=== PATIENT | female | born 1930 | race Caucasian/White ===

== ENCOUNTER 2017-07-09 15:21 | Emergency (ER) | payer MEDICARE, OTHER, MEDICAID ==
[2017-07-09 15:30] VITALS: BP 140/67
--- NOTE | 2017-07-09 16:07 | EDM.PDOC ---
ED HPI GENERAL MEDICAL PROBLEM - General Chief Complaint: Upper Extremity Injury/Pain Stated Complaint: FALL/LACERATIONS/WOUNDS Time Seen by Provider: 07/09/17 15:35 Source of Information: Reports: Patient History Limitations: Reports: No Limitations - History of Present Illness INITIAL COMMENTS - FREE TEXT/NARRATIVE: The patient presents after a fall. She was walking down her steps and a dog got under her feet and she fell. She did not hit her head and she has no LOC. She has no headache, neck pain, chest pain or shortness of breath. She does have 2 skin tears to her left arm and abrasions to her right elbow and knee. She has no other pain. Onset: Sudden Duration: Minutes: Location: Reports: Upper Extremity, Left, Upper Extremity, Right, Lower Extremity, Right Quality: Reports: Burning Severity: Mild Improves with: Reports: None Worsens with: Reports: None Context: Reports: Activity (She tripped over a dog and fell) Associated Symptoms: Reports: No Other Symptoms - Related Data Allergies Allergy/AdvReac Type Severity Reaction Status Date / Time prednisolone acetate, Allergy Severe rash/angioe Verified 07/09/17 15:30 micronized tino [prednisolone acetate, micro] doxycycline Allergy Rash Verified 07/09/17 15:30 Penicillins Allergy Swelling Verified 07/09/17 15:30 Home Meds: Home Meds Aspirin [Ecotrin] 1 tab PO DAILY 06/29/16 [History] Diltiazem HCl [Diltiazem 24Hr ER] 1 tab PO DAILY 06/29/16 [History] atorvaSTATin [Lipitor] 1 tab PO DAILY 06/29/16 [History] LORazepam 0.5 mg PO ASDIRECTED PRN 11/11/16 [History] Past Medical History HEENT History: Reports: Cataract Cardiovascular History: Reports: Arrhythmia, High Cholesterol Other Cardiovascular History: at fib Respiratory History: Reports: COPD Gastrointestinal History: Reports: GERD Other Gastrointestinal History: tumor removal Genitourinary History: Reports: UTI, Recurrent Other OB/BYN History: Historectomy, 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 Musculoskeletal History: Reports: Osteoporosis Psychiatric History: Reports: Anxiety, Depression Oncologic (Cancer) History: Reports: Colon Dermatologic History: Reports: Other (See Below) Other Dermatologic History: excision of skin lesion - Past Surgical History HEENT Surgical History: Reports: Cataract Surgery GI Surgical History: Reports: Colonoscopy, EGD Other GI Surgeries/Procedures: diverticulosis, abdominal pain, hx of colon cancer, h pylori, hematochezia Female Surgical History: Reports: Breast Biopsy, Hysterectomy Social & Family History - Family History Family Medical History: Noncontributory - Tobacco Use Smoking Status *Q: Current Every Day Smoker Years of Tobacco use: 44 Packs/Tins Daily: 1 Second Hand Smoke Exposure: Yes - Caffeine Use Caffeine Use: Reports: Coffee - Alcohol Use Days Per Week of Alcohol Use: 0 - Recreational Drug Use Recreational Drug Use: No Drug Use in Last 12 Months: No - Living Situation & Occupation Living situation: Reports: Single Occupation: Retired Review of Systems - Review of Systems Review Of Systems: See Below Constitutional: Reports: No Symptoms Eyes: Reports: No Symptoms Ears: Reports: No Symptoms Nose: Reports: No Symptoms Mouth/Throat: Reports: No Symptoms Respiratory: Reports: No Symptoms Cardiovascular: Reports: No Symptoms GI/Abdominal: Reports: No Symptoms Genitourinary: Reports: No Symptoms Musculoskeletal: Reports: Other (Abrasions and skin tears) ED EXAM, GENERAL - Physical Exam Exam: See Below Exam Limited By: No Limitations General Appearance: Alert, No Apparent Distress Ears: Normal External Exam Nose: Normal Inspection Head: Atraumatic, Normocephalic Neck: Normal Inspection Respiratory/Chest: No Respiratory Distress, Lungs Clear, Normal Breath Sounds Cardiovascular: Regular Rate, Rhythm, No Edema, No Murmur GI/Abdominal: Soft, Non-Tender, No Organomegaly, No Mass Back Exam: Normal Inspection Extremities: Other (Abrasion to her right elbow with no pain upon palpation no edema. Good sensation and pulses distally. Abrasion to the right knee with no edema and good sensation and pulses distally. Skin tear on her left hand and left forearm.) Course - Vital Signs Last Recorded V/S: Last Vital Signs Temp 98.9 F 07/09/17 15:27 Pulse 95 07/09/17 15:27 Resp 16 07/09/17 15:27 BP 140/67 07/09/17 15:27 Pulse Ox 100 07/09/17 15:27 - Re-Assessments/Exams Free Text/Narrative Re-Assessment/Exam: 07/09/17 16:33 The patient did not want any x-rays and I do not think she needs any. She has abrasions and 2 skin tears that my nurse cleaned and dressed and she closed the skin tears with steri stips. Departure - Departure Time of Disposition: 16:35 Disposition: Home, Self-Care 01 Condition: Good Clinical Impression: Fall Qualifiers: Encounter type: initial encounter Qualified Code(s): W19.XXXA - Unspecified fall, initial encounter Abrasion of elbow, right Qualifiers: Encounter type: initial encounter Qualified Code(s): S50.311A - Abrasion of right elbow, initial encounter Abrasion of right knee Qualifiers: Encounter type: initial encounter Qualified Code(s): S80.211A - Abrasion, right knee, initial encounter Skin tear of forearm without complication Qualifiers: Encounter type: initial encounter Laterality: left Qualified Code(s): S51.812A - Laceration without foreign body of left forearm, initial encounter Skin tear of left hand without complication Qualifiers: Encounter type: initial encounter Qualified Code(s): S61.412A - Laceration without foreign body of left hand, initial encounter - Discharge Information Referrals: Twin Mueller MD [Primary Care Provider] - 1 Week Forms: ED Department Discharge Additional Instructions: Clean your wound with warm soapy water 2 times per day and apply antibiotic ointment after. Do this for 5 days. Follow up with Dr Mueller. Look for any sings of infection such as redness, swelling, pain, or drainage. Be seen sooner if you see any of these signs.
== END 2017-07-09 16:43 | disposition home or self-care (01) ==
LOC: JD.ED 15:21
DX: S51.812A Laceration without foreign body of left forearm, initial encounter (principal); S61.412A Laceration without foreign body of left hand, initial encounter; S50.311A Abrasion of right elbow, initial encounter; S80.211A Abrasion, right knee, initial encounter; E78.00 Pure hypercholesterolemia, unspecified; I48.91 Unspecified atrial fibrillation; J44.9 Chronic obstructive pulmonary disease, unspecified; K21.9 Gastro-esophageal reflux disease without esophagitis; F17.210 Nicotine dependence, cigarettes, uncomplicated; F41.9 Anxiety disorder, unspecified; F32.9 Major depressive disorder, single episode, unspecified; Z98.49 Cataract extraction status, unspecified eye; Z87.440 Personal history of urinary (tract) infections; Z90.710 Acquired absence of both cervix and uterus; Z88.1 Allergy status to other antibiotic agents; Z88.0 Allergy status to penicillin; Z88.8 Allergy status to other drugs, medicaments and biological substances; Z79.82 Long term (current) use of aspirin; Z79.899 Other long term (current) drug therapy; W10.9XXA Fall (on) (from) unspecified stairs and steps, initial encounter
CPT/HCPCS: 99282; 99283

== ENCOUNTER 2019-03-25 01:25 | Emergency (ER) | payer MEDICARE, OTHER, MEDICAID ==
--- NOTE | 2019-03-25 10:47 | ER ---
CHIEF COMPLAINT: A thump in her chest. HISTORY OF PRESENT ILLNESS: The patient awoke with a thump in her chest. She is not sure what happened before this, but she woke up and then felt this thump in her chest. The patient has a history of intermittent atrial fibrillation. She had this single episode. This was not associated with any ongoing chest discomfort, chest pressure, breathing difficulties, or shortness of breath. She did not wake up diaphoretic, and she denies any nausea or vomiting. Besides her atrial fibrillation, she has a history of increased cholesterol. The patient denies any other symptoms at this point. PAST MEDICAL HISTORY: Significant for the increased cholesterol and atrial fibrillation. PAST SURGICAL HISTORY: Significant for hysterectomy. CURRENT MEDICATIONS: Include atorvastatin, ranitidine, diltiazem, Eliquis, and lorazepam at bedtime and as needed. REVIEW OF SYSTEMS: GENERAL: Negative for fevers, chills, headaches, nausea, or dizziness. HEENT: No ear pain, vision changes, difficulty swallowing, or nasal congestion. PULMONARY: No breathing difficulty or shortness of breath. CARDIOVASCULAR: See history of present illness. GASTROINTESTINAL: No nausea, vomiting, constipation, or diarrhea. At times, she gets some left-sided abdominal discomfort, and she cannot lie on her left side because this keeps her up. This has been an ongoing issue dating back over a year. Her regular doctor thinks it is related to her back. GENITOURINARY: No burning or frequency with urination. NEUROLOGIC: Unremarkable. PHYSICAL EXAMINATION: GENERAL: The patient appears her stated age. She is in no acute distress. She is alert and oriented and cooperative during the course of the exam, able to answer questions appropriately. VITAL SIGNS: Show temperature of 97.4; pulse 74, regular; respirations 14, nonlabored; blood pressure 139/53. Pain is rated as 0/10. O2 saturations 97% on room air. HEAD: Normocephalic and atraumatic. NECK: Supple. No palpable neck masses. Thyroid is not palpable. No JVD. No nuchal rigidity. HEART: Regular rate and rhythm without evidence of murmur, gallop, or rub. LUNGS: Clear. Respirations are nonlabored. No wheezes, crackles, or rhonchi. ABDOMEN: Active bowel sounds. Soft. She gets some vague left-sided discomfort and feels like she has a collection of gas in her colon. No rebound or guarding noted. BACK: No CVA discomfort. No palpable discomfort. EXTREMITIES: Negative for varicosities or edema. COURSE IN THE EMERGENCY ROOM: EKG was done which shows a sinus irregular rhythm. Intervals otherwise normal. No ectopy. No acute ischemia. Mild low voltage in the precordial leads. Troponin is negative. Chemistries unremarkable. The patient was observed for some time, did not demonstrate any dysrhythmias on telemetry. At this time, the patient would like to go home. ASSESSMENT: Palpitations. PLAN: Follow up with the regular doctor as needed and in 1 week for recheck. No medication changes at this time. AJ /[id number]
--- NOTE | 2019-03-25 14:25 | CR ---
Chest: Portable view of the chest was obtained. Comparison: Prior chest x-ray of 06/29/16. Heart size appears slightly prominent. Tortuous thoracic aorta is seen. Lungs are clear without acute parenchymal change. Diaphragms are flattened compatible with emphysematous change. Bony structures are osteopenic. Impression: 1. Probable emphysematous change. Nothing acute is seen. Diagnostic code #2
== END 2019-03-25 03:50 | disposition home or self-care (01) ==
LOC: JD.ED 01:25
DX: R00.2 Palpitations (principal); I48.91 Unspecified atrial fibrillation; E78.00 Pure hypercholesterolemia, unspecified; Z90.710 Acquired absence of both cervix and uterus
CPT/HCPCS: 36415; 71045; 71045-26; 80053; 84484; 93010; 99282; 99285-25

== ENCOUNTER 2020-06-09 12:00 | Emergency (ER) | payer MEDICARE, OTHER, MEDICAID ==
[2020-06-09] MEDS ORDERED: Sodium Chloride 0.9% 10 ML Syringe FLUSH PRN (12:08)
[2020-06-09 12:11] VITALS: BP 143/52; PULSE 70
--- NOTE | 2020-06-09 12:17 | EDM.PDOC ---
ED HPI GENERAL MEDICAL PROBLEM - General Chief Complaint: Chest Pain Stated Complaint: [facility] Time Seen by Provider: 06/09/20 12:08 Source of Information: Reports: Patient History Limitations: Reports: No Limitations - History of Present Illness INITIAL COMMENTS - FREE TEXT/NARRATIVE: The patient presents by [facility] for chest pain. She said she was doing a puzzle this morning and she developed right sided chest pain. It was severe. She had no shortness of breath with it. She has no fever, chills, cough, congestion, runny nose, abdominal pain, nausea or vomiting. She has a history of A-fib. She has no pain now and she is feeling much better. Onset: Sudden Duration: Hour(s): Location: Reports: Chest Quality: Reports: Sharp Severity: Severe Improves with: Reports: None Worsens with: Reports: None Associated Symptoms: Reports: Chest Pain. 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 - Related Data Allergies Allergy/AdvReac Type Severity Reaction Status Date / Time doxycycline Allergy Severe Rash Verified 06/09/20 12:11 Penicillins Allergy Severe Swelling Verified 06/09/20 12:11 prednisolone acetate, Allergy Severe rash/angioe Verified 06/09/20 12:11 micronized tino [prednisolone acetate, micro] Home Meds: Home Meds Aspirin [Ecotrin EC] 1 tab PO DAILY 06/29/16 [History] Diltiazem HCl [Diltiazem 24Hr ER] 1 tab PO DAILY 06/29/16 [History] atorvaSTATin [Lipitor] 1 tab PO DAILY 06/29/16 [History] LORazepam 0.5 mg PO ASDIRECTED PRN 11/11/16 [History] Apixaban [Eliquis] 5 mg PO BID 06/09/20 [History] PARoxetine HCl [Paxil] 40 mg PO DAILY 06/09/20 [History] Past Medical History HEENT History: Reports: Cataract Cardiovascular History: Reports: Arrhythmia, High Cholesterol Other Cardiovascular History: at fib Respiratory History: Reports: COPD Gastrointestinal History: Reports: GERD Other Gastrointestinal History: tumor removal Genitourinary History: Reports: UTI, Recurrent 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 Musculoskeletal History: Reports: Osteoporosis Psychiatric History: Reports: Anxiety, Depression Oncologic (Cancer) History: Reports: Colon Dermatologic History: Reports: Other (See Below) Other Dermatologic History: excision of skin lesion - Past Surgical History HEENT Surgical History: Reports: Cataract Surgery GI Surgical History: Reports: Colonoscopy, EGD Other GI Surgeries/Procedures: diverticulosis, abdominal pain, hx of colon cancer, h pylori, hematochezia Female Surgical History: Reports: Breast Biopsy, Hysterectomy Social & Family History - Family History Family Medical History: Noncontributory - Caffeine Use Caffeine Use: Reports: Coffee - Living Situation & Occupation Living situation: Reports: Single Occupation: Retired ED ROS GENERAL - Review of Systems Review Of Systems: See Below Constitutional: Reports: No Symptoms HEENT: Reports: No Symptoms Respiratory: Reports: No Symptoms Cardiovascular: Reports: Chest Pain Endocrine: Reports: No Symptoms GI/Abdominal: Reports: No Symptoms : Reports: No Symptoms Musculoskeletal: Reports: No Symptoms ED EXAM, GENERAL - Physical Exam Exam: See Below Exam Limited By: No Limitations General Appearance: Alert, No Apparent Distress Ears: Normal External Exam Nose: Normal Inspection Head: Atraumatic, Normocephalic Neck: Normal Inspection Respiratory/Chest: No Respiratory Distress, Lungs Clear, Normal Breath Sounds Cardiovascular: Regular Rate, Rhythm, No Edema, No Murmur GI/Abdominal: Soft, Non-Tender, No Organomegaly, No Mass Back Exam: Normal Inspection Course - Vital Signs Last Recorded V/S: Last Vital Signs Temp 97.1 F 06/09/20 12:08 Pulse 70 06/09/20 12:08 Resp 16 06/09/20 12:08 BP 143/52 H 06/09/20 12:08 Pulse Ox 96 06/09/20 12:08 - Orders/Labs/Meds Orders: Active Orders 24 hr Category Date Time Status Cardiac Monitoring [RC] . DIRECTED Care 06/09/20 12:08 Active EKG Documentation Completion [RC] STAT Care 06/09/20 12:08 Active Peripheral IV Care [RC] . DIRECTED Care 06/09/20 12:08 Active Sodium Chloride 0.9% [Saline Flush] Med 06/09/20 12:08 Active 10 ml FLUSH ASDIRECTED PRN Peripheral IV Insertion Adult [OM.PC] Stat Oth 06/09/20 12:08 Ordered Medication Orders Sodium Chloride (Saline Flush) 10 ml FLUSH ASDIRECTED PRN PRN Reason: Keep Vein Open Last Admin: 06/09/20 12:21 Dose: 10 ml Documented by: LEX Labs: Laboratory Tests 06/09/20 06/09/20 Range/Units 12:33 12:33 WBC 7.05 (3.98-10.04) K/mm3 RBC 3.80 L (3.98-5.22) M/mm3 Hgb 11.2 (11.2-15.7) gm/dl Hct 34.6 (34.1-44.9) % MCV 91.1 (79.4-94.8) fl MCH 29.5 (25.6-32.2) pg MCHC 32.4 (32.2-35.5) g/dl RDW Std Deviation 41.6 (36.4-46.3) fL Plt Count 239 (182-369) K/mm3 MPV 10.1 (9.4-12.3) fl Neut % (Auto) 61.5 (34.0-71.1) % Lymph % (Auto) 23.0 (19.3-51.7) % [place] % (Auto) 8.5 (4.7-12.5) % Eos % (Auto) 6.4 H (0.7-5.8) Baso % (Auto) 0.6 (0.1-1.2) % Neut # (Auto) 4.34 (1.56-6.13) K/mm3 Lymph # (Auto) 1.62 (1.18-3.74) K/mm3 [place] # (Auto) 0.60 H (0.24-0.36) K/mm3 Eos # (Auto) 0.45 H (0.04-0.36) K/mm3 Baso # (Auto) 0.04 (0.01-0.08) K/mm3 Manual Slide Review Normal smear Sodium 139 (136-145) mEq/L Potassium 4.1 (3.5-5.1) mEq/L Chloride 106 (98-107) mEq/L Carbon Dioxide 22 (21-32) mEq/L Anion Gap 15.1 H (5-15) BUN 18 (7-18) mg/dL Creatinine 1.0 (0.55-1.02) mg/dL Est Cr Clr Drug Dosing 31.55 mL/min Estimated GFR (MDRD) 52 (>60) mL/min BUN/Creatinine Ratio 18.0 (14-18) Glucose 101 (83-115) mg/dL Calcium 8.5 (8.5-10.1) mg/dL Total Bilirubin 0.4 (0.2-1.0) mg/dL AST 12 L (15-37) U/L ALT 17 (14-59) U/L Alkaline Phosphatase 161 H (46-116) U/L Troponin I < 0.017 (0.00-0.056) ng/mL Total Protein 6.9 (6.4-8.2) g/dl Albumin 3.3 L (3.4-5.0) g/dl Globulin 3.6 gm/dL Albumin/Globulin Ratio 0.9 L (1-2) Meds: Medications Generic Name Dose Route Start Last Admin Trade Name Freq PRN Reason Stop Dose Admin Sodium Chloride 10 ml 06/09/20 12:08 06/09/20 12:21 Saline Flush FLUSH 10 ml ASDIRECTED PRN Administration Keep Vein Open - Re-Assessments/Exams Free Text/Narrative Re-Assessment/Exam: 06/09/20 12:17 I ordered an IV saline lock, EKG, CXR and labs. 06/09/20 13:52 Her CXR looks good. Her EKG shows a NSR with no acute changes. Her CBC and CMP look good. Her troponin is negative. Departure - Departure Time of Disposition: 13:55 Disposition: Home, Self-Care 01 Condition: Good Clinical Impression: Atypical chest pain Referrals: Twin Mueller MD [Primary Care Provider] - 1 Week Forms: ED Department Discharge Additional Instructions: Take your medication as prescribed. Please return if you are worse. Sepsis Event Note (ED) - Evaluation Sepsis Screening Result: No Definite Risk - Focused Exam Vital Signs: Vital Signs Temp Pulse Resp BP Pulse Ox 06/09/20 12:08 97.1 F 70 16 143/52 H 96 - My Orders Last 24 Hours: My Active Orders 06/09/20 12:08 Cardiac Monitoring [RC] . DIRECTED EKG Documentation Completion [RC] STAT Peripheral IV Care [RC] . DIRECTED Sodium Chloride 0.9% [Saline Flush] 10 ml FLUSH ASDIRECTED PRN Peripheral IV Insertion Adult [OM.PC] Stat - Assessment/Plan Last 24 Hours: My Active Orders 06/09/20 12:08 Cardiac Monitoring [RC] . DIRECTED EKG Documentation Completion [RC] STAT Peripheral IV Care [RC] . DIRECTED Sodium Chloride 0.9% [Saline Flush] 10 ml FLUSH ASDIRECTED PRN Peripheral IV Insertion Adult [OM.PC] Stat
--- NOTE | 2020-06-09 12:50 | CR ---
Chest: Portable view of the chest was obtained. Comparison: Prior chest x-ray of 03/25/19. Heart size is slightly prominent. Tortuous thoracic aorta is noted. Mild lobulation the right hemidiaphragm is seen which appears chronic. No acute parenchymal changes seen. Bony structures are osteopenic. Impression: 1. Findings as noted above. 2. Nothing acute is suspected. Diagnostic code #2 Study was dictated in MDT
== END 2020-06-09 14:15 | disposition home or self-care (01) ==
LOC: JD.ED 12:00
DX: R07.89 Other chest pain (principal); E78.00 Pure hypercholesterolemia, unspecified; I48.91 Unspecified atrial fibrillation; F41.9 Anxiety disorder, unspecified; F32.9 Major depressive disorder, single episode, unspecified; Z88.1 Allergy status to other antibiotic agents; Z88.0 Allergy status to penicillin; Z88.8 Allergy status to other drugs, medicaments and biological substances; Z79.82 Long term (current) use of aspirin; Z79.01 Long term (current) use of anticoagulants; Z79.899 Other long term (current) drug therapy
CPT/HCPCS: 36415; 71045; 71045-26; 80053; 84484; 85025; 93005; 93010; 99283; 99285-25

== ENCOUNTER 2020-11-22 17:15 | Emergency (ER) | payer MEDICARE, OTHER, MEDICAID ==
[2020-11-22 17:29] VITALS: BP 142/61; PULSE 74
--- NOTE | 2020-11-22 19:45 | EDM.PDOC ---
ED HPI GENERAL MEDICAL PROBLEM - General Chief Complaint: General Stated Complaint: [facility] Time Seen by Provider: 11/22/20 18:35 Source of Information: Reports: Patient, RN Notes Reviewed History Limitations: Reports: No Limitations - History of Present Illness INITIAL COMMENTS - FREE TEXT/NARRATIVE: Patient is an 89-year-old female presenting to the emergency department via [facility] with complaints of intermittent involuntary movements since last evening. She describes repetitive jerking of her lower extremities which then moves up to her upper extremities. She states she had this continuously last evening which prevented her from sleeping. She is completely conscious for these events and states that they are brief but recur frequently. She was finally able to go to sleep around 6:00 this morning and slept for approximately 4 hours. She has been doing well throughout the day, however this evening the involuntary jerking began again. She states that she has felt somewhat weak and fatigued for the last few weeks. She did have an episode 3 weeks back where she lost her voice. She has not had any fever or chills. She has no history of alert neurologic disorders such as seizures, strokes, or Parkinson's disease. She has not had any recent medication changes. She states that she normally takes Ativan 0.5 mg at bedtime, however she has been out of this medication for couple weeks. 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 - Related Data Allergies Allergy/AdvReac Type Severity Reaction Status Date / Time doxycycline Allergy Severe Rash Verified 11/22/20 17:29 Penicillins Allergy Severe Swelling Verified 11/22/20 17:29 prednisolone acetate, Allergy Severe rash/angioe Verified 11/22/20 17:29 micronized tino [prednisolone acetate, micro] Home Meds: Home Meds Diltiazem HCl [Diltiazem 24Hr ER] 1 tab PO DAILY 06/29/16 [History] LORazepam 0.5 mg PO ASDIRECTED PRN 11/11/16 [History] Apixaban [Eliquis] 2.5 mg PO BID 11/22/20 [History] Past Medical History HEENT History: Reports: Cataract Cardiovascular History: Reports: Arrhythmia, High Cholesterol Other Cardiovascular History: at fib Respiratory History: Reports: COPD Gastrointestinal History: Reports: GERD Other Gastrointestinal History: tumor removal Genitourinary History: Reports: UTI, Recurrent 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 Musculoskeletal History: Reports: Osteoporosis Psychiatric History: Reports: Anxiety, Depression Oncologic (Cancer) History: Reports: Colon Dermatologic History: Reports: Other (See Below) Other Dermatologic History: excision of skin lesion - Past Surgical History HEENT Surgical History: Reports: Cataract Surgery Other HEENT Surgeries/Procedures: both eyes GI Surgical History: Reports: Colonoscopy, EGD Other GI Surgeries/Procedures: diverticulosis, abdominal pain, hx of colon cancer, h pylori, hematochezia Female Surgical History: Reports: Breast Biopsy, Hysterectomy Other Female Surgeries/Procedures: only 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 Social & Family History - Family History Family Medical History: No Pertinent Family History - Tobacco Use Tobacco Use Status *Q: Never Tobacco User - Caffeine Use Caffeine Use: Reports: Coffee - Living Situation & Occupation Living situation: Reports: Single Occupation: Retired ED ROS GENERAL - Review of Systems Review Of Systems: See Below Constitutional: Reports: Weakness, Fatigue. Denies: Fever, Chills HEENT: Reports: No Symptoms Respiratory: Reports: No Symptoms Cardiovascular: Reports: No Symptoms Endocrine: Reports: No Symptoms GI/Abdominal: Reports: No Symptoms : Reports: No Symptoms Musculoskeletal: Reports: No Symptoms Skin: Reports: No Symptoms Neurological: Reports: Other (involuntary jerking of upper and lower extremities) Psychiatric: Reports: No Symptoms Hematologic/Lymphatic: Reports: No Symptoms Immunologic: Reports: No Symptoms ED EXAM, GENERAL - Physical Exam Exam: See Below General Appearance: Alert, WD/WN, No Apparent Distress Respiratory/Chest: No Respiratory Distress, Lungs Clear, Normal Breath Sounds, No Accessory Muscle Use, Chest Non-Tender Cardiovascular: Normal Peripheral Pulses, Regular Rate, Rhythm, No Edema, No Gallop, No JVD, No Murmur, No Rub GI/Abdominal: Normal Bowel Sounds, Soft, Non-Tender, No Organomegaly, No Distention, No Abnormal Bruit, No Mass Neurological: Alert, Oriented, CN II-XII Intact, Normal Cognition, Normal Gait, Normal Reflexes, No Motor/Sensory Deficits, Other (occasional myoclonic movements of the lower extremities. No focal neurologic deficits. ) Psychiatric: Normal Affect, Normal Mood Skin Exam: Warm, Dry, Intact, Normal Color, No Rash #1 Interpretation EKG Date: 11/22/20 Time: 18:03 Rhythm: NSR Rate (Beats/Min): 69 [place]: LAD-Left [place] Deviation P-Wave: Present QRS: Normal ST-T: Normal QT: Prolonged (mildly) Course - Vital Signs Last Recorded V/S: Last Vital Signs Temp 98.8 F 11/22/20 17:21 Pulse 74 11/22/20 17:21 Resp 16 11/22/20 17:21 BP 142/61 H 11/22/20 17:21 Pulse Ox 97 11/22/20 17:21 - Orders/Labs/Meds Labs: Laboratory Tests 11/22/20 11/22/20 11/22/20 Range/Units 17:53 17:53 17:53 WBC 8.23 (3.98-10.04) K/mm3 RBC 3.76 L (3.98-5.22) M/mm3 Hgb 11.2 (11.2-15.7) gm/dl Hct 33.9 L (34.1-44.9) % MCV 90.2 (79.4-94.8) fl MCH 29.8 (25.6-32.2) pg MCHC 33.0 (32.2-35.5) g/dl RDW Std Deviation 42.3 (36.4-46.3) fL Plt Count 250 (182-369) K/mm3 MPV 9.5 (9.4-12.3) fl Neut % (Auto) 61.4 (34.0-71.1) % Lymph % (Auto) 24.7 (19.3-51.7) % [place] % (Auto) 8.7 (4.7-12.5) % Eos % (Auto) 4.5 (0.7-5.8) Baso % (Auto) 0.6 (0.1-1.2) % Neut # (Auto) 5.05 (1.56-6.13) K/mm3 Lymph # (Auto) 2.03 (1.18-3.74) K/mm3 [place] # (Auto) 0.72 H (0.24-0.36) K/mm3 Eos # (Auto) 0.37 H (0.04-0.36) K/mm3 Baso # (Auto) 0.05 (0.01-0.08) K/mm3 D-Dimer, Quantitative < 0.19 L (0.19-0.50) mg/L Sodium 138 (136-145) mEq/L Potassium 3.8 (3.5-5.1) mEq/L Chloride 105 (98-107) mEq/L Carbon Dioxide 25 (21-32) mEq/L Anion Gap 11.8 (5-15) BUN 18 (7-18) mg/dL Creatinine 1.5 H (0.55-1.02) mg/dL Est Cr Clr Drug Dosing 21.26 mL/min Estimated GFR (MDRD) 33 (>60) mL/min BUN/Creatinine Ratio 12.0 L (14-18) Glucose 106 (83-115) mg/dL Lactic Acid (0.4-2.0) mmol/L Calcium 8.9 (8.5-10.1) mg/dL Magnesium (1.8-2.4) mg/dl Total Bilirubin 0.4 (0.2-1.0) mg/dL AST 13 L (15-37) U/L ALT 17 (14-59) U/L Alkaline Phosphatase 152 H (46-116) U/L Troponin I (0.00-0.056) ng/mL Total Protein 6.8 (6.4-8.2) g/dl Albumin 3.1 L (3.4-5.0) g/dl Globulin 3.7 gm/dL Albumin/Globulin Ratio 0.8 L (1-2) Free T4 (0.76-1.46) ng/dL TSH 3rd Generation (0.358-3.74) uIU/mL Urine Color (Yellow) Urine Appearance (Clear) Urine pH (5.0-8.0) Ur Specific [place] (1.005-1.030) Urine Protein (Negative) Urine Glucose (UA) (Negative) Urine Ketones (Negative) Urine Occult Blood (Negative) Urine Nitrite (Negative) Urine Bilirubin (Negative) Urine Urobilinogen (0.2-1.0) Ur Leukocyte Esterase (Negative) Urine RBC (0-5) /hpf Urine WBC (0-5) /hpf Ur Squamous Epith Cells (0-5) /hpf Urine Bacteria (FEW) /hpf Urine Mucus (FEW) /hpf SARS-CoV-2 RNA (REJI) (NEGATIVE) 11/22/20 11/22/20 11/22/20 Range/Units 17:53 17:53 19:00 WBC (3.98-10.04) K/mm3 RBC (3.98-5.22) M/mm3 Hgb (11.2-15.7) gm/dl Hct (34.1-44.9) % MCV (79.4-94.8) fl MCH (25.6-32.2) pg MCHC (32.2-35.5) g/dl RDW Std Deviation (36.4-46.3) fL Plt Count (182-369) K/mm3 MPV (9.4-12.3) fl Neut % (Auto) (34.0-71.1) % Lymph % (Auto) (19.3-51.7) % [place] % (Auto) (4.7-12.5) % Eos % (Auto) (0.7-5.8) Baso % (Auto) (0.1-1.2) % Neut # (Auto) (1.56-6.13) K/mm3 Lymph # (Auto) (1.18-3.74) K/mm3 [place] # (Auto) (0.24-0.36) K/mm3 Eos # (Auto) (0.04-0.36) K/mm3 Baso # (Auto) (0.01-0.08) K/mm3 D-Dimer, Quantitative (0.19-0.50) mg/L Sodium (136-145) mEq/L Potassium (3.5-5.1) mEq/L Chloride (98-107) mEq/L Carbon Dioxide (21-32) mEq/L Anion Gap (5-15) BUN (7-18) mg/dL Creatinine (0.55-1.02) mg/dL Est Cr Clr Drug Dosing mL/min Estimated GFR (MDRD) (>60) mL/min BUN/Creatinine Ratio (14-18) Glucose (83-115) mg/dL Lactic Acid 1.2 (0.4-2.0) mmol/L Calcium (8.5-10.1) mg/dL Magnesium 2.0 (1.8-2.4) mg/dl Total Bilirubin (0.2-1.0) mg/dL AST (15-37) U/L ALT (14-59) U/L Alkaline Phosphatase (46-116) U/L Troponin I < 0.017 (0.00-0.056) ng/mL Total Protein (6.4-8.2) g/dl Albumin (3.4-5.0) g/dl Globulin gm/dL Albumin/Globulin Ratio (1-2) Free T4 1.11 (0.76-1.46) ng/dL TSH 3rd Generation 2.497 (0.358-3.74) uIU/mL Urine Color (Yellow) Urine Appearance (Clear) Urine pH (5.0-8.0) Ur Specific [place] (1.005-1.030) Urine Protein (Negative) Urine Glucose (UA) (Negative) Urine Ketones (Negative) Urine Occult Blood (Negative) Urine Nitrite (Negative) Urine Bilirubin (Negative) Urine Urobilinogen (0.2-1.0) Ur Leukocyte Esterase (Negative) Urine RBC (0-5) /hpf Urine WBC (0-5) /hpf Ur Squamous Epith Cells (0-5) /hpf Urine Bacteria (FEW) /hpf Urine Mucus (FEW) /hpf SARS-CoV-2 RNA (REJI) (NEGATIVE) 11/22/20 11/22/20 Range/Units 19:20 19:20 WBC (3.98-10.04) K/mm3 RBC (3.98-5.22) M/mm3 Hgb (11.2-15.7) gm/dl Hct (34.1-44.9) % MCV (79.4-94.8) fl MCH (25.6-32.2) pg MCHC (32.2-35.5) g/dl RDW Std Deviation (36.4-46.3) fL Plt Count (182-369) K/mm3 MPV (9.4-12.3) fl Neut % (Auto) (34.0-71.1) % Lymph % (Auto) (19.3-51.7) % [place] % (Auto) (4.7-12.5) % Eos % (Auto) (0.7-5.8) Baso % (Auto) (0.1-1.2) % Neut # (Auto) (1.56-6.13) K/mm3 Lymph # (Auto) (1.18-3.74) K/mm3 [place] # (Auto) (0.24-0.36) K/mm3 Eos # (Auto) (0.04-0.36) K/mm3 Baso # (Auto) (0.01-0.08) K/mm3 D-Dimer, Quantitative (0.19-0.50) mg/L Sodium (136-145) mEq/L Potassium (3.5-5.1) mEq/L Chloride (98-107) mEq/L Carbon Dioxide (21-32) mEq/L Anion Gap (5-15) BUN (7-18) mg/dL Creatinine (0.55-1.02) mg/dL Est Cr Clr Drug Dosing mL/min Estimated GFR (MDRD) (>60) mL/min BUN/Creatinine Ratio (14-18) Glucose (83-115) mg/dL Lactic Acid (0.4-2.0) mmol/L Calcium (8.5-10.1) mg/dL Magnesium (1.8-2.4) mg/dl Total Bilirubin (0.2-1.0) mg/dL AST (15-37) U/L ALT (14-59) U/L Alkaline Phosphatase (46-116) U/L Troponin I (0.00-0.056) ng/mL Total Protein (6.4-8.2) g/dl Albumin (3.4-5.0) g/dl Globulin gm/dL Albumin/Globulin Ratio (1-2) Free T4 (0.76-1.46) ng/dL TSH 3rd Generation (0.358-3.74) uIU/mL Urine Color Yellow (Yellow) Urine Appearance Clear (Clear) Urine pH 7.0 (5.0-8.0) Ur Specific [place] 1.015 (1.005-1.030) Urine Protein Negative (Negative) Urine Glucose (UA) Negative (Negative) Urine Ketones Negative (Negative) Urine Occult Blood Negative (Negative) Urine Nitrite Negative (Negative) Urine Bilirubin Negative (Negative) Urine Urobilinogen 1.0 (0.2-1.0) Ur Leukocyte Esterase 2+ H (Negative) Urine RBC 0-5 (0-5) /hpf Urine WBC 20-30 H (0-5) /hpf Ur Squamous Epith Cells 30-40 H (0-5) /hpf Urine Bacteria Many H (FEW) /hpf Urine Mucus Not seen (FEW) /hpf SARS-CoV-2 RNA (REJI) Negative (NEGATIVE) Meds: Medications Discontinued Medications Generic Name Dose Route Start Last Admin Trade Name Rafita PRN Reason Stop Dose Admin Nitrofurantoin Macrocrystals 100 mg 11/22/20 20:44 11/22/20 21:06 Macrobid PO 11/22/20 20:45 100 mg ONETIME ONE Administration - Re-Assessments/Exams Free Text/Narrative Re-Assessment/Exam: Patient is an 89-year-old female presenting to the emergency department with complaints of myoclonic jerks. Symptoms began last evening. States that they c ontinued through most of the evening last night and then resolved throughout the day. She states they only occur when she is resting. When she is up moving around she has no problems. She does state that she feels a lot more anxious lately and that she is out of her Ativan that she normally takes at bedtime. Her exam is grossly unremarkable. I did observe occasional jerking of her lower extremities. She has no focal neurologic deficits. She is alert and oriented. She is able to ambulate without difficulty. I have ordered a complete work-up including CBC, CMP, CRP, magnesium, lactic acid, TSH, T4, EKG, head CT, urinalysis, and a Covid test. 11/22/20 20:50 Results of patient's work-up was significant for a urinary tract infection. It was otherwise unremarkable. Head CT showed no acute abnormalities. Electrolytes are all within normal ranges. Kidney and liver function are normal. She is Covid negative. Called and spoke with the neurologist on-call at [facility] in [place], Dr. Waters. She stated that the symptoms she is describing sound like generalized myoclonus. She stated that infection can precipitate these movements, however she is unsure if her urinary tract infection could necessarily cause it. She recommends treatment of the urinary tract infection. If symptoms do not resolve, follow-up with primary care provider for further diagnostic work-up or referral to neurology. Discussed this with the patient and she is in agreement. I did write [facility] prescription for Bactrim for treatment of urinary tract infection. I will also give her a short course of Ativan 0.5 mg that was previously prescribed to her until she can get a refill from her primary care provider. Discharge instructions as documented. Departure - Departure Time of Disposition: :54 Disposition: Home, Self-Care 01 Condition: Good Clinical Impression: Myoclonus, UTI, Urinary tract infectious disease - Discharge Information *PRESCRIPTION DRUG MONITORING PROGRAM REVIEWED*: No *COPY OF PRESCRIPTION DRUG MONITORING REPORT IN PATIENT FADY: No Instructions: Urinary Tract Infection, Adult Referrals: Twin Mueller MD [Primary Care Provider] - Forms: ED Department Discharge Additional Instructions: You were seen in the emergency department today for repetitive involuntary jerking intermittently of your lower extremities and upper extremities. Work-up included blood work, urinalysis, Covid test, EKG, and a CT scan of your head. Results of your work-up show that you have a urinary tract infection. It was otherwise normal. After consultation with neurology, we will treat your urinary tract infection. If the symptoms continue, he should follow-up with your primary care provider early this week for further testing and referral to neurology if needed. I have also provided you with a short course of Ativan until you can have your prescription refilled by your primary care provider. The tabs provided are 1 mg tablets, therefore only take one half of a tablet at bedtime. Return to ER for any new or worsening symptoms of concern. Sepsis Event Note (ED) - Evaluation Sepsis Screening Result: No Definite Risk
[2020-11-22] MEDS ORDERED: Nitrofurantoin Monohydrate/Macrocrystalline 100 MG Cap PO ONE (20:44)
--- NOTE | 2020-11-23 10:29 | CT ---
Head CT Technique: Multiple axial sections through the brain were obtained. Intravenous contrast was not utilized. Comparison: Prior head CT study of 01/14/15. Findings: Ventricles along with basal cisterns and sulci with convexities are mildly prominent. Minimal areas of diminished density are noted within the periventricular white matter compatible with small vessel ischemic demyelination change. No other abnormal parenchymal densities are appreciated. No evidence of intracranial hemorrhage. No midline shift or mass-effect is seen. Bone window settings were reviewed. The visualized mastoid sinuses and paranasal sinuses show nothing acute. Mild atherosclerotic calcification is seen within the carotid siphon. No acute calvarial finding is appreciated. Impression: 1. Mild senescent change. 2. No acute intracranial abnormality is appreciated. Diagnostic code #2 I agree with preliminary report from [facility], finalized on 11/22/20, 9:26 PM [employer]
== END 2020-11-22 21:27 | disposition home or self-care (01) ==
LOC: JD.ED 17:15
DX: G25.3 Myoclonus (principal); N39.0 Urinary tract infection, site not specified; J44.9 Chronic obstructive pulmonary disease, unspecified; Z79.01 Long term (current) use of anticoagulants; Z79.899 Other long term (current) drug therapy; Z88.1 Allergy status to other antibiotic agents; Z88.0 Allergy status to penicillin; Z88.8 Allergy status to other drugs, medicaments and biological substances; Z20.828 Contact with and (suspected) exposure to other viral communicable diseases
CPT/HCPCS: 36415; 70450; 80053; 81001; 83605; 83735; 84439; 84443; 84484; 85025; 85379; 87086; 93005; 99284; A9270; U0002

== ENCOUNTER 2020-12-14 11:46 | Emergency (ER) | payer MEDICARE, OTHER, MEDICAID ==
[2020-12-14 12:10] VITALS: BP 141/67; PULSE 84
[2020-12-14] MEDS ORDERED: Ondansetron 4 MG/2 ML SDV IVPUSH ONE (12:24)
[2020-12-14] MEDS ORDERED: Sodium Chloride 0.9% 10 ML Syringe FLUSH PRN (12:25)
--- NOTE | 2020-12-14 12:28 | EDM.PDOC ---
ED HPI GENERAL MEDICAL PROBLEM - General Chief Complaint: Gastrointestinal Problem Stated Complaint: WEAKNESS Time Seen by Provider: 12/14/20 12:14 Source of Information: Reports: Patient, RN Notes Reviewed History Limitations: Reports: No Limitations - History of Present Illness INITIAL COMMENTS - FREE TEXT/NARRATIVE: Patient is an 89-year-old female who presents to the ED for the evaluation of her nausea/vomiting/diarrhea. Patient notes that Dr. Mueller is her primary care provider, she was given a new medication for GERD, sometime back in September, but she just recently started taking it this week. She notes that exactly 3 days after she started taking this medication, she became sick to her stomach, and developed some yellow watery diarrhea. This medication is famo tidine. She called her provider on Tuesday, he is stuck on a clear liquid diet, and told her if she could not keep food or fluids down that she should come to the ER on Tuesday for IV fluids. Patient notes she had no way to get to this ER yesterday, so did not come as directed. She had a ride today so presents to the ER for management. She is complaining of multiple bouts of yellow watery diarrhea, generalized weakness and a headache. She has had no fevers or chills, no cough or shortness of breath. Patient notes that she is tolerating some clear liquids at home, but has not had any solid food in some time. - Related Data Allergies Allergy/AdvReac Type Severity Reaction Status Date / Time doxycycline Allergy Severe Rash Verified 12/14/20 12:06 Penicillins Allergy Severe Swelling Verified 12/14/20 12:06 prednisolone acetate, Allergy Severe rash/angioe Verified 12/14/20 12:06 micronized tino [prednisolone acetate, micro] Home Meds: Home Meds Diltiazem HCl [Diltiazem 24Hr ER] 1 tab PO DAILY 06/29/16 [History] LORazepam 0.5 mg PO ASDIRECTED PRN 11/11/16 [History] Apixaban [Eliquis] 2.5 mg PO BID 11/22/20 [History] Famotidine 20 mg PO BEDTIME 12/14/20 [History] Potassium Chloride 10 meq PO DAILY 12/14/20 [History] atorvaSTATin [Lipitor] 20 mg PO DAILY 12/14/20 [History] Past Medical History HEENT History: Reports: Cataract Cardiovascular History: Reports: Arrhythmia, High Cholesterol Other Cardiovascular History: at fib Respiratory History: Reports: COPD Gastrointestinal History: Reports: GERD Other Gastrointestinal History: tumor removal Genitourinary History: Reports: UTI, Recurrent Other [employer] History: Historectomy, 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 Musculoskeletal History: Reports: Osteoporosis Psychiatric History: Reports: Anxiety, Depression Oncologic (Cancer) History: Reports: Colon Dermatologic History: Reports: Other (See Below) Other Dermatologic History: excision of skin lesion - Past Surgical History HEENT Surgical History: Reports: Cataract Surgery Other HEENT Surgeries/Procedures: both eyes GI Surgical History: Reports: Colonoscopy, EGD Other GI Surgeries/Procedures: diverticulosis, abdominal pain, hx of colon cancer, h pylori, hematochezia Female Surgical History: Reports: Breast Biopsy, Hysterectomy Other Female Surgeries/Procedures: only 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 Social & Family History - Family History Family Medical History: No Pertinent Family History - Tobacco Use Tobacco Use Status *Q: Current Every Day Tobacco User Years of Tobacco use: 65 Packs/Tins Daily: 0.5 - Caffeine Use Caffeine Use: Reports: None - Recreational Drug Use Recreational Drug Use: No - Living Situation & Occupation Living situation: Reports: Single Occupation: Retired ED ROS GENERAL - Review of Systems Review Of Systems: Comprehensive ROS is negative, except as noted in HPI. ED EXAM, GI/ABD - Physical Exam Exam: See Below Exam Limited By: No Limitations General Appearance: Alert, WD/WN, No Apparent Distress Respiratory/Chest: No Respiratory Distress, Lungs Clear, Normal Breath Sounds, Chest Non-Tender, Decreased Breath Sounds Cardiovascular: Normal Peripheral Pulses, Regular Rate, Rhythm, No Edema GI/Abdominal Exam: Normal Bowel Sounds, Soft, Non-Tender, No Distention, No Mass Extremities: Normal Inspection, Normal Capillary Refill Neurological: Alert, Oriented, Normal Cognition, No Motor/Sensory Deficits Psychiatric: Normal Affect, Normal Mood Skin Exam: Warm, Dry, Intact, Normal Color, No Rash Course - Vital Signs Last Recorded V/S: Last Vital Signs Temp 97.3 F 12/14/20 12:03 Pulse 84 12/14/20 12:03 Resp 16 12/14/20 12:03 BP 141/67 H 12/14/20 12:03 Pulse Ox 93 L 12/14/20 12:03 - Orders/Labs/Meds Orders: Active Orders 24 hr Category Date Time Status Peripheral IV Care [RC] . DIRECTED Care 12/14/20 12:25 Ordered UA W/MICROSCOPIC [URIN] Stat Lab 12/14/20 12:24 Stop Req Sodium Chloride 0.9% [Normal Saline] 1,000 ml Med 12/14/20 12:30 Active IV ASDIRECTED Sodium Chloride 0.9% [Saline Flush] Med 12/14/20 12:25 Active 10 ml FLUSH ASDIRECTED PRN Peripheral IV Insertion Adult [OM.PC] Routine Oth 12/14/20 12:25 Ordered Medication Orders Sodium Chloride (Normal Saline) 1,000 mls @ 999 mls/hr IV ASDIRECTED TANMAY Last Admin: 12/14/20 12:40 Dose: 999 mls/hr Documented by: MICAELA Sodium Chloride (Saline Flush) 10 ml FLUSH ASDIRECTED PRN PRN Reason: Keep Vein Open Last Admin: 12/14/20 12:40 Dose: 10 ml Documented by: MICAELA Labs: Laboratory Tests 12/14/20 12/14/20 Range/Units 12:35 12:35 WBC 9.54 (3.98-10.04) K/mm3 RBC 4.00 (3.98-5.22) M/mm3 Hgb 11.9 (11.2-15.7) gm/dl Hct 36.3 (34.1-44.9) % MCV 90.8 (79.4-94.8) fl MCH 29.8 (25.6-32.2) pg MCHC 32.8 (32.2-35.5) g/dl RDW Std Deviation 43.7 (36.4-46.3) fL Plt Count 258 (182-369) K/mm3 MPV 9.9 (9.4-12.3) fl Neutrophils % (Manual) 76 H (40-60) % Band Neutrophils % 0 (0-10) % Lymphocytes % (Manual) 17 L (20-40) % Atypical Lymphs % 0 % Monocytes % (Manual) 4 (2-10) % Eosinophils % (Manual) 2 (0.7-5.8) % Basophils % (Manual) 1 (0.1-1.2) Platelet Estimate Adequate Anisocytosis 1+ slight RBC Morph Comment Abnormal Sodium 136 (136-145) mEq/L Potassium 3.9 (3.5-5.1) mEq/L Chloride 104 (98-107) mEq/L Carbon Dioxide 24 (21-32) mEq/L Anion Gap 11.9 (5-15) BUN 20 H (7-18) mg/dL Creatinine 1.1 H (0.55-1.02) mg/dL Est Cr Clr Drug Dosing 29.94 mL/min Estimated GFR (MDRD) 47 (>60) mL/min BUN/Creatinine Ratio 18.2 H (14-18) Glucose 99 (83-115) mg/dL Calcium 9.1 (8.5-10.1) mg/dL Total Bilirubin 0.5 (0.2-1.0) mg/dL AST 14 L (15-37) U/L ALT 15 (14-59) U/L Alkaline Phosphatase 146 H (46-116) U/L Total Protein 7.3 (6.4-8.2) g/dl Albumin 3.5 (3.4-5.0) g/dl Globulin 3.8 gm/dL Albumin/Globulin Ratio 0.9 L (1-2) Meds: Medications Generic Name Dose Route Start Last Admin Trade Name Freq PRN Reason Stop Dose Admin Sodium Chloride 1,000 mls @ 999 mls/hr 12/14/20 12:30 12/14/20 12:40 Normal Saline IV 999 mls/hr ASDIRECTED TANMAY Administration Sodium Chloride 10 ml 12/14/20 12:25 12/14/20 12:40 Saline Flush FLUSH 10 ml ASDIRECTED PRN Administration Keep Vein Open Discontinued Medications Generic Name Dose Route Start Last Admin Trade Name Freq PRN Reason Stop Dose Admin Ondansetron HCl 4 mg 12/14/20 12:24 12/14/20 12:40 Zofran IVPUSH 12/14/20 12:25 4 mg ONETIME ONE Administration - Re-Assessments/Exams Free Text/Narrative Re-Assessment/Exam: 12/14/20 12:26 Patient presents to the ED for evaluation of her nausea/vomiting/diarrhea. It does appear as if headache and diarrhea can be a common side effect of famotidine, courtesy of Ayesha, we will have her stop taking the medication follow-up with Dr. Mueller tomorrow for ongoing reflux management. Today's purposes, get IV placed, give her some IV fluids, and check some basic labs. 12/14/20 13:39 The patient's labs have resulted, everything seems to be within normal limits, patient notes she is feeling better after the fluid and nausea meds. We will get the patient home with the above plan and have her follow-up with Dr. Mueller tomorrow Departure - Departure Time of Disposition: 13:39 Disposition: Home, Self-Care 01 Condition: Good Clinical Impression: Nausea and vomiting in adult - Discharge Information *PRESCRIPTION DRUG MONITORING PROGRAM REVIEWED*: No *COPY OF PRESCRIPTION DRUG MONITORING REPORT IN PATIENT FADY: No Instructions: Dehydration, Elderly, [id number] Referrals: Twin Mueller MD [Primary Care Provider] - Forms: ED Department Discharge Additional Instructions: You were evaluated in the ER today for your nausea/vomiting/diarrhea. You were given some IV fluids, and IV medication to help with the nausea, this seemed to help relieve most your symptoms. Recommend you go home, and stick to a bland or clear liquid diet for the next 24 to 48 hours. Please stop taking the famotidine medication as prescribed by your regular provider, as this is likely causing you some diarrhea and other GI upset. Please call your primary care provider, tomorrow to see if he would recommend any other medications that you could start. I would highly recommend you follow-up with him sometime this week for reevaluation and to make sure your symptoms are getting better as expected. Please return to the ER at any time if your symptoms change or worsen. Sepsis Event Note (ED) - Evaluation Sepsis Screening Result: No Definite Risk - Focused Exam Vital Signs: Vital Signs Temp Pulse Resp BP Pulse Ox 12/14/20 12:03 97.3 F 84 16 141/67 H 93 L - My Orders Last 24 Hours: My Active Orders 12/14/20 12:24 UA W/MICROSCOPIC [URIN] Stat 12/14/20 12:25 Peripheral IV Care [RC] . DIRECTED Sodium Chloride 0.9% [Saline Flush] 10 ml FLUSH ASDIRECTED PRN Peripheral IV Insertion Adult [OM.PC] Routine 12/14/20 12:30 Sodium Chloride 0.9% [Normal Saline] 1,000 ml IV ASDIRECTED - Assessment/Plan Last 24 Hours: My Active Orders 12/14/20 12:24 UA W/MICROSCOPIC [URIN] Stat 12/14/20 12:25 Peripheral IV Care [RC] . DIRECTED Sodium Chloride 0.9% [Saline Flush] 10 ml FLUSH ASDIRECTED PRN Peripheral IV Insertion Adult [OM.PC] Routine 12/14/20 12:30 Sodium Chloride 0.9% [Normal Saline] 1,000 ml IV ASDIRECTED
[2020-12-14] MEDS ORDERED: Sodium Chloride 0.9% 1,000 ML IV SCH (12:30)
== END 2020-12-14 14:00 | disposition home or self-care (01) ==
LOC: JD.ED 11:46
DX: R11.2 Nausea with vomiting, unspecified (principal); R19.7 Diarrhea, unspecified; E78.00 Pure hypercholesterolemia, unspecified; I48.91 Unspecified atrial fibrillation; J44.9 Chronic obstructive pulmonary disease, unspecified; K21.9 Gastro-esophageal reflux disease without esophagitis; Z72.0 Tobacco use; Z88.1 Allergy status to other antibiotic agents; Z88.0 Allergy status to penicillin; Z88.8 Allergy status to other drugs, medicaments and biological substances; Z79.899 Other long term (current) drug therapy; Z79.01 Long term (current) use of anticoagulants
CPT/HCPCS: 36415; 80053; 85007; 85027; 96374; 99284; J2405; J7030